=== PATIENT | female | born 1975 | race Two or more races ===

== ENCOUNTER 2023-08-04 09:51 | Outpatient (OUT) | payer OTHER, SELFPAY ==
--- NOTE | 2023-08-04 | XR_ITS ---
The [address] [id number] Patient Name: COY MAYFIELD MRN: [id number] date: 1975 Sex: F Assigned Patient Location: Current Patient Location: Accession/Order Number: [id number] Exam Date: 08/04/2023 10:00 Report Date: 08/07/2023 07:49 At the request of: LULÚ FISHER Procedure: XR lumbar spine min 4V EXAMINATION: XR lumbar spine min 4V HISTORY: LUMBAR SPINE PAIN COMPARISON: No relevant comparison available. FINDINGS: BONES: Neutral projection demonstrates normal alignment with no acute fracture or spondylolisthesis. Rotatory levocurvature Mild to moderate spondylosis. Moderate facet osteoarthropathy most significant L4-S1 DISC SPACES: Moderate multilevel disc space narrowing most significant at L3-4 and L4-L5 PARASPINOUS: Negative. No paraspinous abnormality is seen. OTHER: No transient spondylolisthesis with flexion or extension XR/XR lumbar spine min 4V IMPRESSION: Moderate degenerative changes with no dynamic instability Electronically authenticated by: SIERRA CONWAY Date: 08/07/2023 07:49
== END 2023-08-04 09:52 | disposition home or self-care (01) ==
LOC: EC 09:51
PROVIDERS: Visit Provider Orthopaedic Surgery Orthopaedic Surgery of the Spine
DX: M54.50 Low back pain, unspecified (principal)
CPT/HCPCS: 72110